=== PATIENT | female | born 2005 | race Caucasian/White ===

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

== ENCOUNTER 2025-02-02 19:48 | Outpatient (CLI) | payer MEDICAID, SELFPAY ==
[2025-02-02] VITALS (10 sets, daily range): BP systolic 103–116; BP diastolic 59–71; PULSE 67–93; RESP 16–18; TEMP 36.3–36.4; O2SAT 99; BMI 19.7
[2025-02-03 00:10] VITALS: BP 103/63; PULSE 79; RESP 16; TEMP 36.4; O2SAT 99
== END 2025-02-03 00:12 | disposition home or self-care (01) ==
LOC: OPOB 19:51 → OBGYN 19:52
PROVIDERS: PCP Pediatrics; Visit Provider Family Medicine
DX: O26.899 Other specified pregnancy related conditions, unspecified trimester (principal); Z3A.00 Weeks of gestation of pregnancy not specified; V89.2XXA Person injured in unspecified motor-vehicle accident, traffic, initial encounter
CPT/HCPCS: 59025; 99211

== ENCOUNTER 2025-03-26 02:53 | Inpatient (IN) | payer MEDICAID, SELFPAY ==
[2025-03-26] VITALS (53 sets, daily range): BP systolic 108–182; BP diastolic 62–105; PULSE 50–99; RESP 16–18; TEMP 35.9–37; O2SAT 83–100; BMI 20.1
[2025-03-26 03:15] LABS: Hematocrit 31.3 % (36-47); Hemoglobin 10.10 g/dL (12.4-14.8); Mean Corpuscular HGB Conc 32.3 g/dL (30-55); Mean Corpuscular Hemoglobin 27.8 pg (27-33); Mean Corpuscular Volume 86.2 fl (85-98); Nucleated Red Blood Cells % 0 %; Platelet Count 294 10^3/cmm (157-399); Red Blood Count 3.63 10^6/uL (3.85-5.65); White Blood Count 8.68 10^3/uL (4.5-13.0)
[2025-03-26 03:28] LABS: PCP Screen Urine Negative (Negative)
--- NOTE | 2025-03-26 04:06 | ANES.PREANE2 ---
Pre-Anesthetic Assessment Height/Weight: Height 1.57 m Weight 49.895 kg Temp Pulse Resp BP Pulse Ox O2 Del Method 96.7 F L 61 18 132/80 100 Room Air 03/26/25 02:35 03/26/25 04:03 03/26/25 02:35 03/26/25 04:03 03/26/25 04:03 03/26/25 02:45 Preop Diagnosis: uterine epidural Familial anesthetic complications: none Was Beta Brittny taken within 24 hours: N/A Was Clonidine taken within 24 hours: N/A Last intake: >8hrs solid food Social No alcohol and No tobacco Exam alert, oriented x 3, clear to auscultation bilaterally and regular rate & rhythm Airway Cervical ROM: within normal limits Mallampati: Class II Dentition: full History/ROS No significant history except as noted Pulmonary None reported CV/HEM None reported None reported Hepatic None reported GI None reported Metabolic None reported Musc/skel None reported Neuropsych None reported Anesthetic Plan ASA status: 2 Anesthesia: Regional (specify below) Risk of > 500 ml blood loss (7ml/kg in children): No Medications/Allergies Home Medications ?Medication ?Instructions ?Recorded ?Confirmed ?Last Taken ?Type no.58-iron bisglycinate 1 cap PO DAILY 02/02/25 03/26/25 Unknown History 10 mg iron-folic acid 400 mcg capsule promethazine 25 mg tablet 25 mg PO Q6H 02/02/25 03/26/25 Unknown History Allergies Allergy/AdvReac Type Severity Reaction Status Date / Time Penicillins Allergy ALGY-Hives Verified 03/26/25 03:04 Current Medications Generic Name Dose Route Start Last Admin Trade Name Freq PRN Reason Stop Dose Admin Lactated Ringer's 1,000 mls @ 999 mls/hr 03/26/25 02:43 03/26/25 03:06 Lactated Ringers IV 999 mls/hr .Q1H1M PRN Administration See label comments PFSH Anesthesia Female Reproductive History : 1 Data Anesthesia 03/26/25 02:50 Short CBC 03/26/25 Range/Units 02:50 WBC 8.68 (4.5-13.0) 10^3/uL Hgb 10.10 L (12.4-14.8) g/dL Hct 31.3 L (36-47) % MCV 86.2 (85-98) fl Plt Count 294 (157-399) 10^3/cmm Neut % (Auto) 67.8 % Neut # (Auto) 5.88 (1.8-8.0) 10^3/uL Blood Bank 03/26/25 02:50 Blood Type A Positive Rho(D) Type Rh positive Antibody Screen Negative Anesthesia Procedures Epidural Time Out Performed: Yes Consents Signed: Procedure Consent Consent: requested by attending/covering physician, from patient, risks and benefits reviewed and patient agrees to proceed Lumbar Level: L3-L4 Epidural position: sitting Epidural procedure: sterile prep of area, 1% lidocaine to numb the area, 18 g needle, negative for paresthesia passed, neg for paresthesia, test dose given, 1.5% xylocaine 1:200k epi, 0.2% Ropivacaine bolus ml (5), placed PCEA, no systemic response, sterile dressing applied, L.U.D. no apparent complications and 0.2% Ropiavacaine @ mls/hr (11) Additional Comments: ARACELIS at 3.5 cm, easy placement, catheter at 10cm
[2025-03-26] MEDS: ROPivacaine premix 200 MG/100 ML PREMIX 10 MG EPIDURAL (04:11)
[2025-03-26] MEDS: ondansetron 2 mg/ML SDV 2 mL 4 MG IVP ×3 (04:47→14:37)
--- NOTE | 2025-03-26 06:30 | PM.OPHPUD ---
Labor & Delivery H&P Update Date of Procedure: March 26, 2025 Date H&P Performed: 03/25/25 Changes to previous documentation: Spontaneous rupture of membranes and cervical change Admission Diagnosis: 19-year-old 1 at 38 weeks and 2 days presenting with spontaneous rupture of membranes and active contractions Preop diagnosis: uterine Planned procedure: Spontaneous vaginal delivery Related Problem List Diagnoses 1. 38 weeks gestation of : 2. Spontaneous rupture of membranes: A&P Assessment and plan 1. 38 weeks gestation of : I anticipate routine labor and spontaneous vaginal delivery. Status: Acute 2. Spontaneous rupture of membranes: Status: Acute PDMP PDMP Reviewed: Not Reviewed
[2025-03-26] MEDS: oxytocin 30 UNIT/500 ML BAG 600 UNIT IV (09:10)
--- NOTE | 2025-03-26 09:16 | P.PCNOB_ITS ---
Delivery Note: Date of delivery: March 26, 2025 Pre-delivery diagnoses: 19-year-old 1 at 38 weeks estima garrick gestational age presenting with spontaneous rupture membranes and an active labor Post-delivery diagnoses: Status post spontaneous vaginal delivery Delivering Physician: Ervin Fonseca Estimated blood loss (mL): 75 Pre-Delivery Course: The patient presented to the hospital with spontaneous rupture membranes. She is having consistent contractions and demonstrating cervical change. An epidural was placed. She then progressed complete without difficulty. Delivery: DELIVERY: The patient progressed to complete without difficulty. She delivered a female with a weight of 5 pounds 10 ounces with Apgars of 9, 9. The baby was delivered from the KAMRAN position and placed on the mother's abdomen. The cord was then clamped and cut 1 minute after delivery. There was no nuchal cord. There was no meconium. The placenta and 3 vessel cord were delivered intact shortly thereafter. The perineum and vaginal vault were carefully examined. No significant lacerations were noted. Both the mother and the baby were in stable condition. Post-Delivery Status: Good A&P Assessment and plan 1. Spontaneous vaginal delivery: I anticipate routine care 2. 38 weeks gestation of : PDMP PDMP Reviewed: Not Reviewed Coding Level of Care Code Acute Code for Chg Fwd Diagnoses Spontaneous vaginal delivery O80 38 weeks gestation of Z3A.38
[2025-03-26 21:47] LABS: Hematocrit 26.7 % (36-47); Hemoglobin 8.60 g/dL (12.4-14.8); Mean Corpuscular HGB Conc 32.2 g/dL (30-55); Mean Corpuscular Hemoglobin 27.8 pg (27-33); Mean Corpuscular Volume 86.4 fl (85-98); Platelet Count 210 10^3/cmm (157-399); Red Blood Count 3.09 10^6/uL (3.85-5.65); White Blood Count 13.84 10^3/uL (4.5-13.0)
[2025-03-27 04:13] VITALS: BP 128/64; PULSE 56; RESP 16; TEMP 36.4; O2SAT 98
[2025-03-27] MEDS: PRENATAL VIT NO.130/IRON/FOLIC 1 EACH TABLET PO (04:13)
--- NOTE | 2025-03-27 08:21 | PM.OBGYDC ---
Discharge Providers DIABETIC EDUCATOR Date of Admission: 03/26/25 02:53 Date of Discharge: 03/27/25 Attending Provider at Admission: Ervin Fonseca MD Attending Provider at Discharge: Ervin Fonseca MD Primary Care Provider: Ervin Fonseca MD Diagnoses at Discharge Discharge Diagnosis 1. Spontaneous vaginal delivery: 2. 38 weeks gestation of : Reason for Visit Reason for Visit: ctx Hospital Course Hospital Course The patient presented to the hospital in active labor and progressed to complete without difficulty. She had unremarkable vaginal delivery. Her course was also unremarkable. Her bleeding was within normal limits. Her pain was well-controlled. She breast-fed well. There are no concerns. Information Peripartum Data: Delivery Method: Vaginal Physical Exam Narrative: The patient is alert. She appears comfortable. Her heart has a regular rate and rhythm with no murmurs appreciated. Lungs are clear to auscultation bilaterally. Her fundus is firm and below the umbilicus. Urinary Catheter Management: Latex Free: Cath Placed During This Visit: yes, but has since been removed by the nurse Reason for Continuing Indwelling Catheter: Decision to DC Catheter Urinary Catheter Date of Insertion: 03/26/25 Urinary Catheter Time of Insertion: 04:36 Date Urinary Catheter Removed: 03/26/25 Time Urinary Catheter Discontinued: 08:30 Discharge Data Studies Completed and Pending Laboratory Results WBC 13.84 10^3/uL (4.5-13.0) H 03/26/25 21:20 RBC 3.09 10^6/uL (3.85-5.65) L 03/26/25 21:20 Hgb 8.60 g/dL (12.4-14.8) L 03/26/25 21:20 Hct 26.7 % (36-47) L 03/26/25 21:20 MCV 86.4 fl (85-98) 03/26/25 21:20 MCH 27.8 pg (27-33) 03/26/25 21: MCHC 32.2 g/dL (30-55) 03/26/25 21:20 RDW 14.3 % (12.1-15.1) 03/26/25 21:20 Plt Count 210 10^3/cmm (157-399) 03/26/25 21:20 MPV 11.3 fL (7.4-10.4) H 03/26/25 21:20 Neut % (Auto) 67.8 % 03/26/25 02:50 Lymph % (Auto) 26.2 % 03/26/25 02:50 [place] % (Auto) 5.2 % 03/26/25 02:50 Eos % (Auto) 0.3 % 03/26/25 02:50 Baso % (Auto) 0.2 % 03/26/25 02:50 Neut # (Auto) 5.88 10^3/uL (1.8-8.0) 03/26/25 02:50 Lymph # (Auto) 2.3 10^3/uL (1.5-6.5) 03/26/25 02:50 Bartholomew # (Auto) 0.5 10^3/uL (0.2-0.9) 03/26/25 02:50 Eos # (Auto) 0.0 10^3/uL (0.0-0.8) 03/26/25 02:50 Baso # (Auto) 0.0 10^3/uL (0.0-0.1) 03/26/25 02:50 Nucleated RBC % (auto) 0 % 03/26/25 02:50 Nucleated RBCs # 0.0 /100WBC 03/26/25 02:50 Urine Opiates Screen Negative ng/mL (Negative) 03/26/25 02:53 Ur Barbiturates Screen Negative ng/mL (Negative) 03/26/25 02:53 Ur Phencyclidine Scrn Negative ng/mL (Negative) 03/26/25 02:53 Ur Amphetamines Screen Negative ng/mL (Negative) 03/26/25 02:53 U Benzodiazepines Scrn Negative ng/mL (Negative) 03/26/25 02:53 Urine Cocaine Screen Negative ng/mL (Negative) 03/26/25 02:53 U Marijuana (THC) Screen Positive ng/mL (Negative) H 03/26/25 02:53 Blood Type A Positive 03/26/25 02:50 Rho(D) Type Rh positive 03/26/25 02:50 Antibody Screen Negative 03/26/25 02:50 Vitals Last Vital Signs Temp 97.6 F 03/27/25 04:13 Pulse 56 L 03/27/25 04:13 Resp 16 03/27/25 04:13 BP 128/64 03/27/25 04:13 Pulse Ox 98 03/27/25 04:13 O2 Del Method Room Air 03/27/25 04:13 Results Labs OB ([facility]): Obstetrics US 01/21/25 Blood Type A Positive 03/26/25 Antibody Screen Negative 03/26/25 Hct, (36-47) 26.7 % L 03/26/25 Hgb, (12.4-14.8) 8.60 g/dL L 03/26/25 Rho(D) Type Rh positive 03/26/25 Plt Count, (157-399) 210 10^3/cmm 03/26/25 HCG, Qual, (Negative) Negative 02/17/24 Urine Opiates Screen, (Negative) Negative ng/mL 03/26/25 Ur Barbiturates Screen, (Negative) Negative ng/mL 03/26/25 Ur Phencyclidine Scrn, (Negative) Negative ng/mL 03/26/25 Ur Amphetamines Screen, (Negative) Negative ng/mL 03/26/25 U Benzodiazepines Scrn, (Negative) Negative ng/mL 03/26/25 Urine Cocaine Screen, (Negative) Negative ng/mL 03/26/25 U Marijuana (THC) Screen, (Negative) Positive ng/mL H 03/26/25 Discharge Plan Discharge Patient Disposition: Home Condition: Stable Prescriptions: New ibuprofen 800 mg Tablet 800 mg PO TID Qty: 45 0RF Continued PNV no.58-iron bisgly-folic ac 10-400 mg-mcg Capsule 1 cap PO DAILY Discontinued promethazine 25 mg tablet 25 mg PO Q6H Discharge Order = DC NOW: Discharge Order (Routine); Ordered 03/27/25 Ordered By: Ervin Fonseca Referrals: Ervin Fonseca MD [Primary Care Provider, [facility]] - 6 Weeks Discharge Diet: Usual diet Discharge Activity: Limit activity as instructed Patient Instructions: Depression (DC), Opioid Safety (DC), Preeclampsia and Eclampsia After Delivery (GEN), Hemorrhage (DC), OB Discharge Report, OB Food/Drug Interaction Guide, Opioid Safety, OB Home Care, OB Vaginal Deliveries, Patient Portal & [facility] Instructions, Abnormal Bleeding Discharge Attestations DIABETIC EDUCATOR Time Spent in Discharge Care*: less than 30 min Coding Level of Care Code Acute Code for Chg Fwd Diagnoses Spontaneous vaginal delivery O80 38 weeks gestation of Z3A.38
[2025-03-27 10:24] VITALS: BP 123/73; PULSE 58; RESP 16; TEMP 36.4; O2SAT 99
[2025-03-27 10:37] VITALS: BP 123/73; PULSE 58; RESP 16; TEMP 36.4; O2SAT 99
--- NOTE | 2025-03-27 12:08 | ANE.PACU2 ---
Inpatient post-anesthesia follow up: Airway intact: Yes Vital signs: Temperature 97.5 F Pulse Rate 58 Respiratory Rate 16 Blood Pressure 123/73 Pulse Oximetry 99 Oxygen Delivery Me thod Room Air Oxygen Flow Rate Fraction of Inspir ed Oxygen Hydration adequate: Yes Nausea and vomiting: No Pain level: 1 Mental status: Baseline Epidural Start/End: Epidural Start Date: 03/26/25 Epidural Start Time: 03:45 Epidural End Date: 03/26/25 Epidural End Time: 11:07
== END 2025-03-27 10:37 | disposition home or self-care (01) | DRG 560 ==
LOC: OPOB 02:53 → OBGYN 02:53
PROVIDERS: Admitting Provider Family Medicine; PCP Family Medicine; Visit Provider Family Medicine
DX: O80 Encounter for full-term uncomplicated delivery (principal); Z37.0 Single live birth; Z3A.38 38 weeks gestation of pregnancy
CPT/HCPCS: 36415; 51702; 59025; 59409; 80306; 83986; 85025; 85027; 86850; 86900; 99211; J2405; J2590; J2795; J7120; J7121; J9999; Q0169